=== PATIENT | female | born 1960 | race Caucasian/White ===

== ENCOUNTER → 2017-11-29 | Outpatient (CLI) | payer OTHER, BC ==
[~2017-11-29] MED LIST: IBU800 PO; MULTI VITAMIN PO; PER PO; SER50 PO
--- NOTE | 2017-11-30 11:27 | RADIOLOGY IMAGING REPORT ---
FACILITY: [facility] PATIENT NAME: JAMES MCCULLOUGH : [id number] MR: [id number] V: [id number] EXAM DATE: ORDERING PHYSICIAN: GUS SILVA TECHNOLOGIST: Allyson Ribeiro PROCEDURE:BILATERAL DIGITAL SCREENING MAMMOGRAM WITH CAD ASSISTED INTERPRETATION & 3D TOMOSYNTHESIS COMPARISON:Prior mammograms 11/23/16, 11/21/15, 09/12/14, 09/11/13, 09/03/11. INDICATIONS:SCREENING FINDINGS: There is prominent fatty replacement throughout the breasts. The parenchymal pattern has remained stable allowing for difference in mammographic technique & patient positioning. There is no evidence of malignant appearing mass, malignant appearing calcifications or other secondary sign of malignancy in either breast. DIAGNOSTIC CATEGORY 1--NEGATIVE. RECOMMENDATIONS: ROUTINE MAMMOGRAM AND CLINICAL EVALUATION. IMPRESSION: BIRADS 1: Negative No significant abnormality is seen. Dictated by: Mar Farley M.D. on 11/29/2017 at 10:39 Transcribed by: [email or web address] on 11/29/2017 at 11:13 Approved by: Mar Farley M.D. on 11/30/2017 at 11:25 [facility]
== END ==
LOC: MAMO 00:23
PROVIDERS: ATTEND Physician Assistant
DX: Z12.31 Encounter for screening mammogram for malignant neoplasm of breast (principal)
CPT/HCPCS: 77063; 77067

== ENCOUNTER → 2018-01-05 | Outpatient (CLI) | payer OTHER, BC ==
[~2018-01-05] MED LIST changes: +AMOX-559 PO; +CEPH500T7 PO
== END ==
LOC: LAB 11:00
PROVIDERS: ATTEND Obstetrics & Gynecology
DX: N89.8 Other specified noninflammatory disorders of vagina (principal); B96.20 Unspecified Escherichia coli [E. coli] as the cause of diseases classified elsewhere
CPT/HCPCS: 87070; 87077; 87186; 87210